=== PATIENT | female | born 1990 | race American Indian/Alaskan Native ===

== ENCOUNTER 2024-10-18 18:03 | Emergency (ER) | payer MEDICAID, SELFPAY ==
--- NOTE | 2024-10-18 18:11 | XR_ITS ---
Examination: Fingers, left hand fourth digit 3 views Technique: AP, oblique, lateral views left hand fourth digit. Exam date and time: October 18, 2024 1814 hrs. Indications: Injury to the fourth digit today, fourth digit pain Findings: Acute fractures ungual tuft tip distal phalanx fourth digit, without significant displacement Impression: Acute fractures ungual tuft tip distal phalanx fourth digit
[2024-10-18 18:38] VITALS: BP 118/75; PULSE 93; RESP 18; TEMP 37; O2SAT 95; BMI 40.1
--- NOTE | 2024-10-18 18:42 | PD.EDHAND ---
Upper Extremity Injury RME/HPI General Chief Complaint: General Adult/Misc Complain Stated Complaint: SMASHED R) 4TH DIGIT IN CAR DOOR; SENT BY RES CLIN Time Seen by Provider: 10/18/24 18:37 Arrival date/time: 10/18/24 18:03 34F with no significant PMH presents to ED with R ring finger pain after it was caught in a car door. Patient has had a tetanus shot in the past 5 years. Limitations: no limitations Related Data Previous Rx's ?Medication ?Instructions ?Recorded ondansetron 4 mg disintegrating 4 mg PO Q8H PRN nausea and 11/27/22 tablet vomiting #15 tabs cefadroxil 1 gram tablet 1,000 mg PO BID 5 days #10 tabs 10/18/24 Allergies Allergy/AdvReac Type Severity Reaction Status Date / Time No Known Allergies Allergy Verified 10/18/24 18:05 Review of Systems Review of Systems Systems Reviewed: All systems reviewed, normal except as documented Constitutional Constitutional: Reports system reviewed and no additional complaints, except as documented, Denies fever(s) and Denies headache(s) ENT Ears, Nose, Mouth, and Throat: Denies disequilibrium and Denies headache(s) Cardiovascular Cardiovascular: Reports system reviewed and no additional complaints, except as documented, Denies chest pain and Denies dyspnea Respiratory Respiratory: Reports system reviewed and no additional complaints, except as documented, Denies cough and Denies dyspnea Gastrointestinal Gastrointestinal: Reports system reviewed and no additional complaints, except as documented, Denies abdominal pain, Denies nausea and Denies vomiting Musculoskeletal Musculoskeletal: Reports as per HPI and Reports arthralgias Neurologic Neurologic: Reports system reviewed and no additional complaints, except as documented, Denies confusion, Denies disequilibrium and Denies headache(s) Psychiatric Psychiatric: Denies confusion Past Medical History Past Medical History CARDIAC: Negative Congestive Heart Failure RESPIRATORY: Negative Chronic Obstructive Pulmonary Disease (COPD) GENITOURINARY: Negative Renal Disease ENDOCRINE: Negative Diabetes Mellitus Type 1 or Diabetes Mellitus Type 2 Social History SMOKING STATUS: Never smoker SUBSTANCE USE: does not use ED Exam General Limitations: Present no limitations General appearance: Present alert and in no apparent distress Head Head exam: Present atraumatic Eye Eye exam: Present normal appearance, PERRL and EOMI ENT ENT exam: Present normal exam, normal oropharynx and mucous membranes moist Neck Neck exam: Present normal inspection, full ROM and trachea midline Chest Chest inspection: Present normal inspection and symmetric chest wall rise Respiratory Respiratory exam: Present normal lung sounds bilaterally Cardiovascular Cardiovascular exam: Present regular rate, normal rhythm and normal heart sounds Abdominal Exam Abdominal exam: Present soft and normal bowel sounds Extremities Exam Extremities exam: Present full ROM Expanded Upper Extremity Exam Hand exam: Present full ROM (R tip of ring finger; small/pinpoint open wound at edge of nail bed), tenderness and swelling Back Exam Back exam: Present normal inspection and full ROM Neurological Exam Neurological exam: Present alert, oriented X3 and CN II-XII intact Psychiatric Psychiatric exam: Present normal affect and normal mood Skin Skin exam: Present warm, dry, intact and normal color Course Quality Measures none Orders Category Date Time Status Wound Care NOW Care 10/18/24 18:38 Active XR finger RT min 2V Stat Exams 10/18/24 18:11 Taken Vital Signs Vital signs: Vital Signs Temperature 98.6 F 10/18/24 18:38 Pulse Rate 93 10/18/24 18:38 Respiratory Rate 18 10/18/24 18:38 Blood Pressure 118/75 10/18/24 18:38 Pulse Oximetry (%) 95 10/18/24 18:38 Oxygen Delivery Method Room Air 10/18/24 18:38 O2 at 95% on RA and WNLs Extremity Injury MDM Narrative MDM Narrative:: 34F with no significant PMH presents to ED with R ring finger pain after it was caught in a car door. Patient has had a tetanus shot in the past 5 years. Physical exam reveals small puncture/open wound at the edge of nail, as well as R ring finger tip tenderness and swelling. ROM intact. Patient is afebrile, calm, and alert. Wound cleaned/irrigated and bandaged. XR reveals R ring finger tuft fx. Will give short course of prophylactic ABX even though open wound unlikely to reach bone. Patient data External records reviewed:: [facility] previous records Clinical information provided by:: patient Social determinants that could affect healthcare access:: none Patient has the following chronic illnesses:: none How is presenting disease/condition affected by chronic disease/condition?: no chronic disease Evaluation data The following diagnostics were reviewed and interpreted by me:: radiology exam(s) Lab and/or radiology exams considered but not ordered:: ordered Interpretation Summary: above Medications / Prescriptions Medications or Prescriptions considered but not ordered:: not ordered Medication administrations:: n/a Consultations Consultation(s) initiated? (list below): No Diagnosis Upper Extremity Injury Differential Diagnosis: sprain and strain of wrist, fracture of wrist, finger sprain, dislocation of finger, Colles' fracture, fracture of hand and other (finger fx) Most likely diagnosis given after review of the tests above:: finger fx Admission Indicated Admission indicated?: not indicated Admission Request Was there a request for admission?: No Disposition Plan Disposition Plan: Discharge Discharge Attestation Discharge Attestation: The patient and all family members were given an opportunity to ask questions and understood the discharge instructions. Discharge instructions specifically effects, indications for sooner follow up or return to the emergency department, and the expected course of current diagnosis. Patient condition: Stable Discharge Plan Plan Patient Disposition: HOME (Self Care) Disposition Comment: Stable Prescriptions/Referrals Prescriptions/Med Rec: New cefadroxil 1 gram tablet 1,000 mg PO BID 5 Days Qty: 10 0RF No Action ondansetron 4 mg tablet,disintegrating 4 mg PO Q8H PRN (Reason: nausea and vomiting) Qty: 15 0RF Referrals: No Primary/Family,Physician [Primary Care Provider] - In 1 week Problem List Clinical Impression: Finger fracture Patient/Caregiver Discharge Instructions Education Materials: ED Fracture, Finger, Closed Additional Instructions: Please follow-up with PCP within 24-48 hours and return immediately if symptoms worsen. Print Language: Romanian Stand Alone Forms: Patient Portal Info Letter LINETTE/DANG Supervising Physician LINETTE/DANG Supervising Physician: Dr. Robertson
== END 2024-10-18 19:00 | disposition home or self-care (01) ==
PROVIDERS: Emergency Provider Emergency Medicine
DX: S62.664A Nondisplaced fracture of distal phalanx of right ring finger, initial encounter for closed fracture (principal); W23.0XXA Caught, crushed, jammed, or pinched between moving objects, initial encounter; Y92.810 Car as the place of occurrence of the external cause
CPT/HCPCS: 73140; 99283